=== PATIENT | male | born 1995 | race African-American/Black ===

== ENCOUNTER 2016-08-24 21:14 | Emergency (ER) | payer OTHER ==
[~2016-08-24] VITALS: Ht 1633.2 cm; Wt 70.4 kg
[2016-08-24 23:45] VITALS: BP 144/76
== END 2016-08-24 23:45 | disposition home or self-care (01) ==
LOC: EME 21:14 → RME 21:14 → EME 21:14 → RME 23:45
PROC: 0JQP0ZZ Repair Left Lower Leg Subcutaneous Tissue and Fascia, Open Approach (ICD-10-PCS; principal; 2016-08-24)
DX: S81.012A Laceration without foreign body, left knee, initial encounter (principal); W14.XXXA Fall from tree, initial encounter
CPT/HCPCS: 99281; 99284

== ENCOUNTER 2016-09-03 11:35 | Emergency (ER) | payer OTHER ==
[~2016-09-03] VITALS: Ht 167.6 cm; Wt 70.4 kg
[2016-09-03 12:07] VITALS: BP 148/77
== END 2016-09-03 12:07 | disposition home or self-care (01) ==
LOC: EME 11:35
DX: S81.012D Laceration without foreign body, left knee, subsequent encounter (principal); Z48.02 Encounter for removal of sutures
CPT/HCPCS: 99281; 99283

== ENCOUNTER 2017-01-04 23:29 | Emergency (ER) | payer OTHER ==
[~2017-01-04] VITALS: Ht 165.1 cm; Wt 70.7 kg
[2017-01-05 00:56] VITALS: BP 147/77
== END 2017-01-05 00:57 | disposition home or self-care (01) ==
LOC: EME 23:29
DX: S50.822A Blister (nonthermal) of left forearm, initial encounter (principal); T50.8X5A Adverse effect of diagnostic agents, initial encounter; Z11.1 Encounter for screening for respiratory tuberculosis; Z87.891 Personal history of nicotine dependence
CPT/HCPCS: 71020; 99281; 99284